=== PATIENT | male | born 1975 | race Caucasian/White ===

== ENCOUNTER → 2016-11-01 | Outpatient (REF) | payer MEDICARE, MEDICAID ==
[2016-11-01 15:44] LABS: ANION GAP 12.1 MEQ/L (3-15)
== END ==
LOC: LAB 14:52
PROVIDERS: ATTEND Family Medicine
DX: E11.51 Type 2 diabetes mellitus with diabetic peripheral angiopathy without gangrene (principal); E03.9 Hypothyroidism, unspecified
CPT/HCPCS: 80048; 83036; 84443

== ENCOUNTER → 2016-12-28 | Outpatient (CLI) | payer MEDICARE, MEDICAID ==
[~2016-12-28] MED LIST: ASCO500T20 PO; CALC-685 PO; CEPH500C PO; CHOL100048 PO; DIPH25CA79 PO; DULO60CA7 PO; INSASP1U SQ; INSU100V32 SQ; INSU100V5 SQ; LEVE500T PO; LEVO100T PO; LORA10CA PO; MELA3TAB34 PO; NF-ESOM40C PO; THERAPEUTIC M PO; [UNRECOGNIZED DRUG - CODE] PO; [UNRECOGNIZED DRUG - CODE] PO; [UNRECOGNIZED DRUG - OTHER] TOP
[2016-12-28 12:05] VITALS: BP 113/71
--- NOTE | 2016-12-28 12:05 | Urgent Care T Sheet Gen (E) ---
Intake General Temperature (Fahrenheit): 97.8 Pulse: 112 Blood Pressure Systolic: 113 Blood Pressure Diastolic: 71 Respirations: 20 SPO2: 97 Description of Symptoms Patient presents with his Disability Supports caregiver. Notes worsening cough over the past 5 days. Patient has allergies for which he takes Claritin and Singulair daily. Over the past few days, has noticed worsening nasal congestion and PND. Also notes worsening sore throat and cough. Caregiver states he did nothing but sleep yesterday and is very irritable. Hasn't tried any of his PRN meds such as Tessalon pearls or Mucinex. Patient tells me he doesn't like the Tessalon pearls. History of Present Illness Allergies: Coded Allergies: Penicillins (Unverified Allergy, 04/29/13) Home Meds Reported Medications Insulin Detemir (Levemir)100 Unit/1 Ml Vial10 Units SQ BID 04/02/13 Acetaminophen (Genebs)500 Mg Tablet1 Ea PO PRN 08/03/12 Cholecalciferol (Vitamin D3) (Vitamin D)1,000 Unit Capsule2 Ea PO DAILY Ref 0 08/03/12 Ascorbic Acid (Vitamin C)500 Mg Tablet1 Ea PO DAILY Ref 0 08/03/12 [ Therapeutic-M Tablet] No Conflict Check1 Ea PO DAILY Ref 0 08/03/12 Insulin Aspart (Novolog)100 Unit/1 Ml Vial Units SQ TID Ref 0 08/03/12 Esomeprazole Magnesium (Nexium)40 Mg Capsule.dr40 Mg PO DAILY Ref 0 08/03/12 [Minerin Cream] No Conflict Check TOP DAILY Ref 0 08/03/12 Melatonin 3 Mg Tablet3 Mg PO DAILY Ref 0 08/03/12 Loratadine (Claritin)10 Mg Vkapayr72 Mg PO DAILY Ref 0 08/03/12 Levothyroxine Sodium (Synthroid)100 Mcg [id number] Mcg PO DAILY Ref 0 08/03/12 Levetiracetam (Keppra)500 Mg Qowrul013 Mg PO BID Ref 0 08/03/12 Erythromycin Ethylsuccinate (E.e.s.)400 Mg Homdfx251 Mg PO TID Ref 0 08/03/12 Diphenhydramine HCl (Benadryl)25 Mg Oeipunb66 Mg PO DAILY Ref 0 08/03/12 Duloxetine HCl (Cymbalta)60 Mg Capsule.dr60 Mg PO DAILY Ref 0 08/03/12 Calcium Carbonate/Vitamin D3 (Calcium 600 + Vit D 400 Caplet)1 Each Tablet1 Ea PO BID Ref 0 08/03/12 Respiratory Constitutional Symptoms: No Fever, Malaise EENTM: Nose Congestion Throat pain Respiratory: Cough Short of breath Cardiovascular: No symptoms reported All Other Systems Reviewed Remaining Systems: All other systems reviewed with negative findings Past Ggdakdo-Wmgjrp-Swkpyp Hx Surgeries/Hospitalizations Hospitalization/Surgery Hx: DIABETIC, SINUS PROBLEMS, DEPRESSION, OCD, SLEEP DIFFICULTY, THROID PROBLEMS, ACID REFLUX, ALLERGIES, SEIZURES RELATED TO DIABETES WHEN BLOOD SUGAR GETS LOW, TONSILECTOMY Respiratory Respiratory History: Asthma Cardiovascular Cardiovascular History: Other, see comment Comment: mitral valve prolapse Neuro/Muscular Comment: SEIZURES R/T DIABETES Reproductive System Sexually Transmitted Diseases: No Gastrointestinal GI/Endocrine History: Thyroid disorder, GERD Diabetes Diabetes: IDDM Onset: AGE 3 HEENT Impaired Vision: Glasses Hearing Impaired: None Psychosocial Behavior Disorders: Depression Physical Exam Physical Exam General Appearance: WD/WN No apparent distress Eyes, Ears, Nose, Throat Ex: TMs normal Pharyngeal erythema (cobblestone appearance with thick PND) Other (red nasal turbinates with clear, thick drainage) Neck Exam: SuppleNo Lymphadenopathy Respiratory Exam: Lungs clear (deep productive cough throughout exam.) Normal breath sounds Cardiovascular Exam: Regular rate, rhythm Departure Urgent Care Impression Impression: Primary Impression: Seasonal allergies Qualified Code: J30.1 - Allergic rhinitis due to pollen Additional Impressions: Sinusitis Qualified Code: J01.00 - Acute maxillary sinusitis, unspecified Cough Departure Disposition: HOME OR SELF-CARE Condition: Stable Referrals: Juan Jackson MD (PCP) Additional Instructions: Long discussion with patient and caregiver. I believe his symptoms are related to his allergies. Asked Wolf if he would use a nasal steroid to help with the drainage and resultant cough but he adamantly refused. His nose is congested however the drainage wasn't purulent. Given the fact that he has been very lethargic and irritable, I opted to treat with Amoxicillin on the off chance he is getting secondary sinus infection. While his chart in [employer] states he has a PCN allergy, his Disability Supports paperwork doesn't indicate that and he has previously been prescribed Amoxicillin without issue. Wolf states he doesn't like the Tessalon pearls. Instead, I suggested taking OTC Mucinex DM. F/U with PCP if no better Patient and caregiver understand DC instructions. All questions were answered. End of report . [facility] Dec 28, 2016 12:05
== END ==
LOC: MHUC 11:08
PROVIDERS: ATTEND Physician Assistant
DX: J30.1 Allergic rhinitis due to pollen (principal); J01.00 Acute maxillary sinusitis, unspecified; R05 Cough
CPT/HCPCS: 99213